=== PATIENT | female | born 1955 | race Caucasian/White ===

== ENCOUNTER 2016-10-12 10:06 | Outpatient (CLI) | payer OTHER ==
--- NOTE | 2016-10-13 06:13 | Diagnostic Imaging Report ---
Report Submission Date: Oct 12, 2016 11:33:44 PM ADVISER SALES Patient ~ Study Name: HUMBERTO LOU ~ Date: Oct 12, 2016 10:20:44 AM ADVISER SALES ~ Modality Type: US Gender: F ~ Description: UNILAT LTD STDY EXT VEINS : 51 ~ Institution: [facility] Physician: PETROS HARDEN ~ ~ ~ ~ Duplex imaging right lower extremity Clinical history: ~Pain for 4 days in the lateral thigh with tingling and warmth. ~Rule out deep venous thrombosis. Technique: ~Real time sonography of the right lower extremity is performed in transverse and longitudinal views. ~Doppler interrogation and color flow imaging are additionally used. Findings: ~There are normal Doppler wave forms from the interrogated vessels with normal respiratory fluctuation and augmentation. ~There is no echogenic thrombus identified within the vessel lumen. ~The veins compress normally. ~ Imaging in the area of the lateral thigh demonstrates no evidence of cystic or solid mass. Impression: ~ 1. ~Negative study. 2. ~No deep venous thrombosis. ~ Electronically signed on Oct 12, 2016 11:33:44 PM ADVISER SALES by: Gennaro COBIAN
== END 2016-10-12 10:07 ==
LOC: RAD 10:06
PROVIDERS: ATTEND Nurse Practitioner Family
DX: R07.89 Other chest pain (principal)
CPT/HCPCS: 93971

== ENCOUNTER 2018-09-29 12:19 | Emergency (ER) | payer MEDICARE, OTHER ==
--- NOTE | 2018-09-29 12:30 | ED Physician Documentation ---
Upper Respiratory Symptoms - HISTORIAN Historian: patient - HPI Stated Complaint: cough, fever, sinus pain x 2 days Chief Complaint: Cough/ Upper Respiratory Onset: days ago (2) Duration: constant Severity: mild Associated Symptoms: fever, chills, earache, sinus pain, sinus drainage, sore throat, hoarseness Worsened by Deep Breath: No Further Comments: yes (She states she started to feel ill two days ago with bone aches and fever. She states she has tried OTC meds with mild relief. She has now a cough that is at times productive. Sinus pain and pressure and allergy drainge. No sick contacts that she is aware of. She has no other complaints) - ROS CONST/EYES: denies: weakness, eye redness, eye itching CVS/RESP: denies: chest pain, shortness of breath LYMPH: denies: rash GI/: denies: vomiting, nausea, diarrhea NEURO/PSYCH: denies: fainting, dizziness, confusion, anxiety, depression MS/SKIN: denies: rash - PAST HX Lung Disease: other (GERD, chronic pain, depression, ) PE Risk Factors: none Immunizations: UTD Allergies/Adverse Reactions: Allergies Allergy/AdvReac Type Severity Reaction Status Date / Time amoxicillin [Amoxicillin] Allergy Nausea Unverified 11/11/13 17:37 azithromycin Allergy Hives Verified 09/29/18 12:41 sulfamethoxazole Allergy Nausea and Unverified 11/19/13 15:52 [From Bactrim] itching with DS trimethoprim [From Bactrim] Allergy Nausea and Unverified 11/19/13 15:52 itching with DS Home Medications: Ambulatory Orders Medication Instructions Recorded Gabapentin 100 mg PO TID 09/29/18 Meloxicam 15 mg PO D 09/29/18 Metoprolol Succinate [Toprol Xl] 50 mg PO D 09/29/18 Mirtazapine 15 mg PO HS 09/29/18 - SOCIAL HX Smoking History: cigarettes Alcohol Use: none Drug Use: none - FAMILY HX Family History: none - REVIEWED ASSESSMENTS Nursing Assessment Reviewed: Yes Vitals Reviewed: Yes Upper Respiratory Symptoms - EXAM General Appearance: no acute distress, alert EENT: eyes nml inspection, PERRL, pain over sinuses, frontal, maxillary, TM erythema, TM dullness (R), loss of TM landmarks (R), purulent nasal drainage, pharyngeal erythema Neck: normal inspection Respiratory: no resp. distress, breath sounds nml, no pain on inspiration Abdomen: non-tender, no organomegaly, nml bowel sounds CVS: reg rate & rhythm, heart sounds normal Skin: color nml, no rash, warm,dry Extremities: non-tender Neuro/Psych: oriented x3 Discharge Clincal Impression: Sinusitis Qualifiers: Sinusitis location: frontal Chronicity: acute Recurrence: non-recurrent Qualified Code(s): J01.10 - Acute frontal sinusitis, unspecified Referrals: Lydia Hines FNP [Primary Care Provider] - 2 Days Comments: 1. Keflex 500 mg take 1 by mouth every 12 hours x 10 days 2. Tessalon Pearls 100 mg take 1 by mouth every 8 hours as needed for cough 3. Medrol dose pack as directed 4. Increase fluids 5. Follow up with PCP in 2-4 days if no improvement 6. STOP SMOKING 7. Return to ER for any concerns Condition: Stable Disposition: 01 HOME, SELF-CARE Decision to Admit: NO Date of Decison to Admit: 09/29/18 Decision Time: 12:47
[2018-09-29 12:48] VITALS: BP 136/86
== END 2018-09-29 12:53 | disposition home or self-care (01) ==
LOC: ED 12:19
DX: J01.10 Acute frontal sinusitis, unspecified (principal); Z72.0 Tobacco use
CPT/HCPCS: 99281; 99282